=== PATIENT | male | born 1965 | race Caucasian/White ===

== ENCOUNTER 2019-01-08 21:56 | Inpatient (IN) | payer OTHER ==
[~2019-01-08] VITALS: Ht 177.8 cm; Wt 78.0 kg
[2019-01-08] MEDS ORDERED: PROPOFOL 1,000 MG in IV 1 EA IV SCH (22:24)
[2019-01-08] MEDS ORDERED: PROPOFOL 1,000 MG/100 ML VIAL As Ordered ONE (22:25)
[2019-01-08] MEDS ORDERED: SUCCINYLCHOLINE INJ 200 MG/10 ML VIAL (J0330) IV ONE (22:30)
[2019-01-08] MEDS ORDERED: ROCURONIUM BROMIDE 50 MG/5 ML VIAL IV PRN (22:30)
[2019-01-08] MEDS ORDERED: ETOMIDATE INJ 20MG/10ML VIAL IV ONE (22:30)
[2019-01-08 22:46] LABS: HEMATOCRIT 50.3 % (42.0-52.0); HEMOGLOBIN 16.7 g/dl (13.5-17.5); MEAN CORPUSCULAR HEMOGLOBIN 30.1 pg (27.0-33.0); MEAN CORPUSCULAR HGB CONC 33.2 g/dl (32.0-36.5); MEAN CORPUSCULAR VOLUME 90.6 fl (80.0-96.0); PLATELET COUNT, AUTOMATED 270 10^3/uL (150-450); RED BLOOD COUNT 5.55 10^6/uL (4.30-6.10); WHITE BLOOD COUNT 13.8 10^3/uL (4.0-10.0)
[2019-01-08 22:57] LABS: ATYPICAL LYMPH 6 % (0-5); EOSINOPHILS 1 % (0-3); LYMPHOCYTES 30 % (16-44); MONOCYTES 8 % (0-5); NEUTROPHILS 55 % (28-66)
[2019-01-08 22:58] LABS: PLATELET ESTIMATE NORMAL (NORMAL)
[2019-01-08 23:12] LABS: ACETAMINOPHEN LEVEL < 2.0 UG/ML (10.0-30.0); ALBUMIN 3.5 GM/DL (3.2-5.2); ALT/SGPT 21 U/L (12-78); BILIRUBIN,DIRECT < 0.1 MG/DL (0.0-0.2); BILIRUBIN,TOTAL 0.1 MG/DL (0.2-1.0); BLOOD UREA NITROGEN 11 MG/DL (7-18); CARBON DIOXIDE LEVEL 24 MEQ/L (21-32); CHLORIDE LEVEL 110 MEQ/L (98-107); CK-MB VALUE MASS 1.4 NG/ML (<3.6); CPK CREATINE PHOSPHOKINASE 77 U/L (39-308); CREATININE FOR GFR 0.98 MG/DL (0.70-1.30); ETHYL ALCOHOL (ETHANOL) 0.135 % (0.000-0.010); GLOMERULAR FILTRATION RATE > 60.0 (>56); GLUCOSE, FASTING 97 MG/DL (70-100); MAGNESIUM LEVEL 1.9 MG/DL (1.8-2.4); MB/CK RELATIVE INDEX 1.82 (< OR =4); POTASSIUM SERUM 3.9 MEQ/L (3.5-5.1); SALICYLATE LEVEL 3.4 MG/DL (5.0-30.0); SODIUM LEVEL 143 MEQ/L (136-145); TOTAL PROTEIN 6.7 GM/DL (6.4-8.2); TROPONIN I < 0.02 NG/ML (< 0.10)
[2019-01-08 23:14] LABS: AMPHETAMINES LEVEL URINE NEGATIVE (NEGATIVE); BARBITURATES URINE NEGATIVE (NEGATIVE); BENZODIAZEPINES URINE NEGATIVE (NEGATIVE); CANNABINOIDS URINE POSITIVE (NEGATIVE); COCAINE METABOLITE URINE NEGATIVE (NEGATIVE); METHADONE URINE NEGATIVE (NEGATIVE); OPIATES URINE NEGATIVE (NEGATIVE); PHENCYCLIDINE URINE NEGATIVE (NEGATIVE)
[2019-01-08] MEDS ORDERED: MIDAZOLAM INJ 5 MG/ML VIAL (J2250) IV PRN (23:15)
[2019-01-08] MEDS ORDERED: MIDAZOLAM INJ 2 MG/2 ML VIAL (J2250) IV ONE (23:15)
[2019-01-08] MEDS ORDERED: fentaNYL 100 MCG/2 ML INJECTION (J3010) IV ONE (23:15)
[2019-01-08 23:25] LABS: ABG BASE EXCESS -6.1 (-2.0-2.0); ABG HCO3 20.8 MEQ/L (22.0-26.0); ABG PARTIAL PRESSURE CO2 46.1 mmHg (35.0-45.0); ABG PARTIAL PRESSURE O2 193.5 mmHg (75.0-100.0); ABG STANDARD HCO3 19.6 MEQ/L (22.0-26.0); ABG TOTAL CO2 22.3 MEQ/L (22.0-29.0); ABG pH (ARTERIAL) 7.273 UNITS (7.350-7.450)
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
[2019-01-08] MEDS ORDERED: NS 1,000 ML IV ONE (23:30)
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
[2019-01-09] VITALS (20 sets, daily range): BP systolic 85–148; BP diastolic 51–79
[2019-01-09] MEDS ORDERED: PROAAER10 INH (00:24)
[2019-01-09] MEDS ORDERED: VITA1CAP25 PO (00:24)
[2019-01-09] MEDS ORDERED: CEFD1CAP8 PO (00:24)
[2019-01-09] MEDS ORDERED: BUPR-335 PO (00:24)
[2019-01-09] MEDS ORDERED: ATOR1TAB21 PO (00:24)
[2019-01-09] MEDS ORDERED: PRAZ1CAP PO (00:24)
[2019-01-09] MEDS ORDERED: STIO1AER INH (00:24)
[2019-01-09] MEDS ORDERED: FLUO40CA PO (00:24)
[2019-01-09] MEDS ORDERED: AMLO5TAB6 PO (00:24)
[2019-01-09] MEDS ORDERED: MIDAZOLAM INJ 2 MG/2 ML VIAL (J2250) IV PRN (00:45)
[2019-01-09] MEDS: IPRATROPIUM 0.5MG/ALBUTEROL 2.5MG INH SOL UD 3ML (DUONEB)(J7620) NEB SCH ×4 (02:00→19:38)
[2019-01-09] MEDS: PROPOFOL 1,000 MG in IV 1 EA IV SCH ×2 (02:55→07:19)
--- NOTE | 2019-01-09 02:57 | REP ---
Clinical: Status post intubation. Comparison: None . Findings: Nasogastric tube in satisfactory position below left hemidiaphragm. Endotracheal tube approximately 4 cm above the felix. The mediastinum and cardiac silhouette are stable and within normal limits for portable technique. Diffuse increased interstitial markings are nonspecific. No focal consolidation. No obvious effusion. No pneumothorax. Skeletal structures are intact. Impression: 1. Endotracheal tube and nasogastric tube in satisfactory position. 2. Diffusely increased interstitial markings. Differential diagnosis includes but is not limited to pneumonitis, early pulmonary vascular congestion, edema, and chronic interstitial diseases. Electronically Signed by Mikey Ortiz MD 01/09/2019 02:48 A
[2019-01-09] MEDS: cefTRIAXone SOD 1 GM in D5W MINI-BAG PLUS 50 ML IV SCH (03:24)
[2019-01-09] MEDS ORDERED: ETOMIDATE INJ 20MG/10ML VIAL ONE (03:32)
[2019-01-09] MEDS ORDERED: ROCURONIUM BROMIDE 50 MG/5 ML VIAL ONE (03:32)
[2019-01-09] MEDS ORDERED: SUCCINYLCHOLINE 100 MG/5 ML SYRINGE (J0330) ONE (03:32)
[2019-01-09] MEDS ORDERED: PROPOFOL 200 MG/20 ML VIAL ONE (03:32)
[2019-01-09 05:13] LABS: BASO # 0.1 10^3/uL (0.0-0.2); BASO % 0.9 % (0.0-1.0); EOS # 0.4 10^3/uL (0.0-0.5); EOS % 4.3 % (0.0-3.0); HEMATOCRIT 46.5 % (42.0-52.0); HEMOGLOBIN 15.1 g/dl (13.5-17.5); LYMPH # 3.5 10^3/uL (1.5-5.0); LYMPH % 40.7 % (24.0-44.0); MEAN CORPUSCULAR HEMOGLOBIN 29.8 pg (27.0-33.0); MEAN CORPUSCULAR HGB CONC 32.5 g/dl (32.0-36.5); MEAN CORPUSCULAR VOLUME 91.7 fl (80.0-96.0); MONO # 0.7 10^3/uL (0.0-0.8); MONO % 7.8 % (0.0-5.0); NEUTROPHILS % 45.6 % (36.0-66.0); PLATELET COUNT, AUTOMATED 238 10^3/uL (150-450); RED BLOOD COUNT 5.07 10^6/uL (4.30-6.10); WHITE BLOOD COUNT 8.7 10^3/uL (4.0-10.0)
[2019-01-09 05:32] LABS: BLOOD UREA NITROGEN 12 MG/DL (7-18); CALCIUM LEVEL 8.3 MG/DL (8.5-10.1); CARBON DIOXIDE LEVEL 29 MEQ/L (21-32); CHLORIDE LEVEL 108 MEQ/L (98-107); GLOMERULAR FILTRATION RATE > 60.0 (>56); GLUCOSE, FASTING 92 MG/DL (70-100); MAGNESIUM LEVEL 1.9 MG/DL (1.8-2.4); PHOSPHORUS LEVEL 4.9 MG/DL (2.5-4.9); POTASSIUM SERUM 3.7 MEQ/L (3.5-5.1); SODIUM LEVEL 143 MEQ/L (136-145)
[2019-01-09 05:44] LABS: CPK CREATINE PHOSPHOKINASE 86 U/L (39-308); TROPONIN I < 0.02 NG/ML (< 0.10)
[2019-01-09 06:16] LABS: ABG BASE EXCESS 2.6 (-2.0-2.0); ABG HCO3 27.3 MEQ/L (22.0-26.0); ABG O2 SATURATION 98.8 % (95.0-99.0); ABG PARTIAL PRESSURE CO2 42.2 mmHg (35.0-45.0); ABG STANDARD HCO3 26.8 MEQ/L (22.0-26.0); ABG TOTAL CO2 28.6 MEQ/L (22.0-29.0); ABG pH (ARTERIAL) 7.429 UNITS (7.350-7.450)
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
--- NOTE | 2019-01-09 08:53 | REP ---
Single view chest: 01/10/2019. Indication: Intubation. Comparison: Yesterday. Findings: Lines and tubes are similarly positioned compared to the most recent study. There is no pneumothorax or significant pleural effusion. Slightly increased interstitial markings are redemonstrated particulate within the lung bases. Cardiac silhouette is normal. Impression: Essentially no change compared to yesterday. Electronically Signed by Dilan Lindsey DO 01/09/2019 08:51 A
[2019-01-09] MEDS ORDERED: CHLORHEXIDINE GLUCONATE 0.12 % 15ML UDC (PERIDEX ORAL RINSE) MT SCH (09:00)
[2019-01-09] MEDS: ENOXAPARIN 40 MG/0.4 ML SYRINGE (J1650) SC SCH (09:26)
[2019-01-09] MEDS: PANTOPRAZOLE 40MG INJ (PROTONIX) (C9113) IV SCH (09:26)
[2019-01-09] MEDS ORDERED: LORazepam 2 MG TAB PO PRN (09:30)
[2019-01-09 09:47] LABS: NT-PRO BNP 155 PG/ML (<125)
--- NOTE | 2019-01-09 09:50 | IPN ---
EVENT NOTE DATE: 01/09/2019 The patient was assessed later in the morning with a sedation vacation and weaning trial. The patient was responsive and following commands appropriately and tolerated the weaning trial well. The patient did not have any desaturation or hemodynamic instability. He had good tidal volumes, was not significantly tachypneic. The patient was therefore successfully extubated. Post extubation, he does complain of some discomfort in his chest and in his left arm where there is some bruising noted. The patient will be started on clinical institute withdrawal assessment for alcohol (CIWA) protocol with as needed benzodiazepines for possible alcohol withdrawal. He will also be started on thiamine, folate and multivitamin supplements. Will wean him off of oxygen later today as tolerated. Will advance his diet as tolerated today. Patient was signed out to hospitalist service. JULIANO
--- NOTE | 2019-01-09 12:45 | ECGEPIP ---
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
[2019-01-09] MEDS: amLODIPine 5 MG TAB PO SCH (14:58)
[2019-01-09] MEDS: THIAMINE 100 MG TAB PO SCH ×2 (14:59→20:31)
[2019-01-09] MEDS: MULTIVITAMINS/MINERALS THERAP 1 TAB PO SCH (14:59)
[2019-01-09] MEDS: FOLIC ACID 1 MG TAB PO SCH (15:00)
[2019-01-09] MEDS ORDERED: FLUBLOK(EGG FREE)(QUAD)INFLUENZA VACC 0.5ML SYRINGE (90682)18YRS&OLDER IM PRN (15:15)
--- NOTE | 2019-01-09 19:55 | ECGEPIP ---
[facility] - ED Test Date: 2019-01-09 Pat Name: KATHERINE ADKINS Department: Room: Q5979-20 Gender: Male Company Pilot: LUIS M : 1965 Requested By: Luis Miguel Parra Order Number: [id number] Reading MD: Amaris Oshea Measurements Intervals [place] Rate: 70 P: 26 CT: 125 QRS: 58 QRSD: 97 T: 42 QT: 427 QTc: 461 Interpretive Statements SINUS RHYTHM LOW QRS VOLTAGE IN EXTREMITY LEADS NO PRIOR ECG FOR COMPARISON NONSPECIFIC ST T WAVE CHANGES PROLONGED QTC Electronically Signed on 01-09-2019 19:54:27 EDT by Amaris Oshea
[2019-01-09] MEDS: ACETAMINOPHEN TAB 650MG DOSE (2X325MG) PO PRN (20:31)
[2019-01-09] MEDS: ATORVASTATIN 20 MG TAB PO SCH (20:31)
[2019-01-10] VITALS (16 sets, daily range): BP systolic 103–186; BP diastolic 60–88
[2019-01-10] MEDS: IPRATROPIUM 0.5MG/ALBUTEROL 2.5MG INH SOL UD 3ML (DUONEB)(J7620) NEB SCH ×4 (01:42→20:21)
[2019-01-10] MEDS: cefTRIAXone SOD 1 GM in D5W MINI-BAG PLUS 50 ML IV SCH (01:45)
[2019-01-10] MEDS: ACETAMINOPHEN TAB 650MG DOSE (2X325MG) PO PRN ×3 (02:51→16:53)
[2019-01-10 04:45] LABS: BASO # 0.1 10^3/uL (0.0-0.2); EOS # 0.5 10^3/uL (0.0-0.5); EOS % 5.1 % (0.0-3.0); HEMATOCRIT 45.4 % (42.0-52.0); HEMOGLOBIN 14.9 g/dl (13.5-17.5); LYMPH # 2.8 10^3/uL (1.5-5.0); LYMPH % 29.1 % (24.0-44.0); MEAN CORPUSCULAR HEMOGLOBIN 30.3 pg (27.0-33.0); MEAN CORPUSCULAR HGB CONC 32.8 g/dl (32.0-36.5); MEAN CORPUSCULAR VOLUME 92.3 fl (80.0-96.0); MONO # 1.1 10^3/uL (0.0-0.8); MONO % 11.5 % (0.0-5.0); NEUTROPHILS % 52.9 % (36.0-66.0); PLATELET COUNT, AUTOMATED 214 10^3/uL (150-450); RED BLOOD COUNT 4.92 10^6/uL (4.30-6.10); WHITE BLOOD COUNT 9.6 10^3/uL (4.0-10.0)
[2019-01-10 05:07] LABS: BLOOD UREA NITROGEN 10 MG/DL (7-18); CALCIUM LEVEL 8.3 MG/DL (8.5-10.1); CARBON DIOXIDE LEVEL 29 MEQ/L (21-32); CHLORIDE LEVEL 109 MEQ/L (98-107); CREATININE FOR GFR 0.86 MG/DL (0.70-1.30); GLOMERULAR FILTRATION RATE > 60.0 (>56); GLUCOSE, FASTING 88 MG/DL (70-100); POTASSIUM SERUM 3.8 MEQ/L (3.5-5.1); SODIUM LEVEL 143 MEQ/L (136-145)
--- NOTE | 2019-01-10 08:19 | REP ---
Portable chest x-ray: Single view. History: Intubated patient. Comparison study January 09, 2019. Findings: In the interval since the prior chest x-ray, the endotracheal and nasogastric tubes have been withdrawn. Oxygen delivery tubing and monitoring electrodes are seen. There is mild plate-like atelectasis in the left and right lung base. Lung armendariz are otherwise clear. Heart is not enlarged. There is right apical bullous. No new infiltrate. Electronically Signed by Scott Zavala MD 01/10/2019 08:10 A
[2019-01-10] MEDS: THIAMINE 100 MG TAB PO SCH ×2 (08:33→20:00)
[2019-01-10] MEDS: MULTIVITAMINS/MINERALS THERAP 1 TAB PO SCH (08:33)
[2019-01-10] MEDS: FOLIC ACID 1 MG TAB PO SCH (08:33)
[2019-01-10] MEDS: amLODIPine 5 MG TAB PO SCH (08:33)
[2019-01-10] MEDS: ENOXAPARIN 40 MG/0.4 ML SYRINGE (J1650) SC SCH (08:34)
[2019-01-10] MEDS: PANTOPRAZOLE 40MG INJ (PROTONIX) (C9113) IV SCH (08:34)
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
[2019-01-10] MEDS: ATORVASTATIN 20 MG TAB PO SCH (20:00)
[2019-01-10] MEDS ORDERED: NALOXONE INJ 0.4 MG/1 ML VIAL (J2310) As Ordered ONE ×3 (22:09→22:21)
[2019-01-10] MEDS ORDERED: FLUMAZENIL 0.5 MG/5 ML VIAL As Ordered ONE (22:24)
[2019-01-10] MEDS ORDERED: FLUMAZENIL 0.5 MG/5 ML VIAL IV STA (22:26)
[2019-01-10 22:30] LABS: ABG BASE EXCESS 2.4 (-2.0-2.0); ABG HCO3 25.5 MEQ/L (22.0-26.0); ABG O2 SATURATION 96.9 % (95.0-99.0); ABG PARTIAL PRESSURE CO2 35.4 mmHg (35.0-45.0); ABG PARTIAL PRESSURE O2 83.3 mmHg (75.0-100.0); ABG STANDARD HCO3 26.6 MEQ/L (22.0-26.0); ABG TOTAL CO2 26.6 MEQ/L (22.0-29.0); ABG pH (ARTERIAL) 7.476 UNITS (7.350-7.450)
[2019-01-10] MEDS ORDERED: NALOXONE INJ 0.4 MG/1 ML VIAL (J2310) IV STA ×3 (22:36)
--- NOTE | 2019-01-10 23:16 | REPVR ---
PROCEDURE INFORMATION: Exam: CT Head Without Contrast Exam date and time: 01/10/2019 10:45 PM Clinical history: 53 years old, male; Altered mental status/memory loss; Additional info: Altered mental status / stuporous TECHNIQUE: Imaging protocol: Computed tomography of the head without contrast. Radiation optimization: All CT scans at this facility use at least one of these dose optimization techniques: automated exposure control; mA and/or kV adjustment per patient size (includes targeted exams where dose is matched to clinical indication); or iterative reconstruction. COMPARISON: CT Head without contrast 01/08/2019 10:44 PM FINDINGS: Brain: Diffuse mild cerebral age related volume loss. Mild patchy low attenuation in the white matter compatible with mild chronic small vessel ischemic disease. No midline shift, mass, fluid collection, or evidence of hemorrhage. Ventricles: Ventricular enlargement proportional to volume loss. Bones/joints: Unremarkable. No acute fracture. Sinuses: Visualized sinuses are unremarkable. No fluid levels. Mastoid air cells: Middle ear and mastoid partial opacification, correlate for otitis media. Soft tissues: Unremarkable. IMPRESSION: 1. Mild involutional changes, no acute intracranial abnormality. 2. Middle ear and mastoid partial opacification, correlate for otitis media. Electronically signed by: Ashvin Abbasi On 01/10/2019 23:16:36 PM
[2019-01-10 23:36] LABS: BASO # 0.1 10^3/uL (0.0-0.2); BASO % 0.8 % (0.0-1.0); EOS # 0.6 10^3/uL (0.0-0.5); EOS % 6.2 % (0.0-3.0); HEMATOCRIT 48.2 % (42.0-52.0); HEMOGLOBIN 15.8 g/dl (13.5-17.5); LYMPH # 3.1 10^3/uL (1.5-5.0); LYMPH % 32.6 % (24.0-44.0); MEAN CORPUSCULAR HEMOGLOBIN 29.9 pg (27.0-33.0); MEAN CORPUSCULAR HGB CONC 32.8 g/dl (32.0-36.5); MEAN CORPUSCULAR VOLUME 91.1 fl (80.0-96.0); MONO % 10.7 % (0.0-5.0); NEUTROPHILS # 4.7 10^3/uL (1.5-8.5); NEUTROPHILS % 49.3 % (36.0-66.0); PLATELET COUNT, AUTOMATED 232 10^3/uL (150-450); RED BLOOD COUNT 5.29 10^6/uL (4.30-6.10); WHITE BLOOD COUNT 9.5 10^3/uL (4.0-10.0)
[2019-01-10 23:52] LABS: AMPHETAMINES LEVEL URINE NEGATIVE (NEGATIVE); BARBITURATES URINE NEGATIVE (NEGATIVE); BENZODIAZEPINES URINE POSITIVE (NEGATIVE); CANNABINOIDS URINE POSITIVE (NEGATIVE); COCAINE METABOLITE URINE NEGATIVE (NEGATIVE); METHADONE URINE NEGATIVE (NEGATIVE); OPIATES URINE NEGATIVE (NEGATIVE); PHENCYCLIDINE URINE NEGATIVE (NEGATIVE)
--- NOTE | 2019-01-10 23:56 | REPVR ---
PROCEDURE INFORMATION: Exam: XR Chest, 1 View Exam date and time: 01/10/2019 10:30 PM Clinical history: 53 years old, male; Other: Non responsive; Additional info: PT nonresponsive TECHNIQUE: Imaging protocol: XR of the chest Views: 1 view. COMPARISON: CR PORTABLE CHEST X-RAY 01/10/2019 7:27 AM FINDINGS: Lungs: Unremarkable. No consolidation. Pleural space: Unremarkable. No pleural effusion. No pneumothorax. Heart/Mediastinum: Unremarkable. No cardiomegaly. Bones/joints: Unremarkable. IMPRESSION: No acute findings. Electronically signed by: Dilan Jaquez On 01/10/2019 23:56:00 PM
[2019-01-11] VITALS (12 sets, daily range): BP systolic 97–151; BP diastolic 55–81
[2019-01-11] MEDS ORDERED: FLUMAZENIL 0.5 MG/5 ML VIAL IV STA (00:05)
[2019-01-11 00:27] LABS: ALBUMIN 3.3 GM/DL (3.2-5.2); ALT/SGPT 59 U/L (12-78); BILIRUBIN,TOTAL 0.4 MG/DL (0.2-1.0); BLOOD UREA NITROGEN 12 MG/DL (7-18); CALCIUM LEVEL 8.7 MG/DL (8.5-10.1); CARBON DIOXIDE LEVEL 27 MEQ/L (21-32); CHLORIDE LEVEL 108 MEQ/L (98-107); CHOLESTEROL LEVEL 149 MG/DL (< 200); CPK CREATINE PHOSPHOKINASE 95 U/L (39-308); CREATININE FOR GFR 0.91 MG/DL (0.70-1.30); GLOMERULAR FILTRATION RATE > 60.0 (>56); GLUCOSE, FASTING 116 MG/DL (70-100); LDH LACTATE DEHYDROGENASE 171 U/L (87-241); PHOSPHORUS LEVEL 2.6 MG/DL (2.5-4.9); POTASSIUM SERUM 3.9 MEQ/L (3.5-5.1); SODIUM LEVEL 141 MEQ/L (136-145); TOTAL PROTEIN 6.2 GM/DL (6.4-8.2); TRIGLYCERIDES LEVEL 208 MG/DL (<150)
[2019-01-11] MEDS: IPRATROPIUM 0.5MG/ALBUTEROL 2.5MG INH SOL UD 3ML (DUONEB)(J7620) NEB SCH ×4 (01:43→19:27)
[2019-01-11] MEDS: cefTRIAXone SOD 1 GM in D5W MINI-BAG PLUS 50 ML IV SCH (02:55)
[2019-01-11 04:48] LABS: BASO # 0.1 10^3/uL (0.0-0.2); BASO % 0.8 % (0.0-1.0); EOS # 0.5 10^3/uL (0.0-0.5); EOS % 6.2 % (0.0-3.0); HEMATOCRIT 46.8 % (42.0-52.0); LYMPH # 3.1 10^3/uL (1.5-5.0); LYMPH % 35.6 % (24.0-44.0); MEAN CORPUSCULAR HEMOGLOBIN 29.5 pg (27.0-33.0); MEAN CORPUSCULAR HGB CONC 32.1 g/dl (32.0-36.5); MEAN CORPUSCULAR VOLUME 91.9 fl (80.0-96.0); MONO # 0.8 10^3/uL (0.0-0.8); MONO % 9.5 % (0.0-5.0); NEUTROPHILS # 4.1 10^3/uL (1.5-8.5); NEUTROPHILS % 47.4 % (36.0-66.0); PLATELET COUNT, AUTOMATED 227 10^3/uL (150-450); RED BLOOD COUNT 5.09 10^6/uL (4.30-6.10); WHITE BLOOD COUNT 8.6 10^3/uL (4.0-10.0)
[2019-01-11 05:15] LABS: BLOOD UREA NITROGEN 11 MG/DL (7-18); CALCIUM LEVEL 8.6 MG/DL (8.5-10.1); CARBON DIOXIDE LEVEL 29 MEQ/L (21-32); CHLORIDE LEVEL 108 MEQ/L (98-107); CREATININE FOR GFR 0.91 MG/DL (0.70-1.30); GLOMERULAR FILTRATION RATE > 60.0 (>56); GLUCOSE, FASTING 108 MG/DL (70-100); POTASSIUM SERUM 3.9 MEQ/L (3.5-5.1); SODIUM LEVEL 141 MEQ/L (136-145)
[2019-01-11] MEDS: ACETAMINOPHEN TAB 650MG DOSE (2X325MG) PO PRN ×2 (08:10→19:25)
[2019-01-11] MEDS: amLODIPine 5 MG TAB PO SCH (08:10)
[2019-01-11] MEDS: FOLIC ACID 1 MG TAB PO SCH (08:10)
[2019-01-11] MEDS: MULTIVITAMINS/MINERALS THERAP 1 TAB PO SCH (08:10)
[2019-01-11] MEDS: THIAMINE 100 MG TAB PO SCH ×2 (08:10→20:04)
[2019-01-11] MEDS: ENOXAPARIN 40 MG/0.4 ML SYRINGE (J1650) SC SCH (08:11)
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
[2019-01-11] MEDS: ATORVASTATIN 20 MG TAB PO SCH (20:04)
[2019-01-11] MEDS: PRAZOSIN 1 MG CAP PO SCH (20:05)
[2019-01-12] VITALS (12 sets, daily range): BP systolic 106–148; BP diastolic 65–96
[2019-01-12] MEDS: cefTRIAXone SOD 1 GM in D5W MINI-BAG PLUS 50 ML IV SCH (01:06)
[2019-01-12] MEDS: IPRATROPIUM 0.5MG/ALBUTEROL 2.5MG INH SOL UD 3ML (DUONEB)(J7620) NEB SCH ×4 (01:06→19:52)
[2019-01-12 06:19] LABS: BASO # 0.1 10^3/uL (0.0-0.2); EOS # 0.6 10^3/uL (0.0-0.5); EOS % 6.6 % (0.0-3.0); HEMOGLOBIN 15.3 g/dl (13.5-17.5); LYMPH % 33.8 % (24.0-44.0); MEAN CORPUSCULAR HEMOGLOBIN 29.1 pg (27.0-33.0); MEAN CORPUSCULAR HGB CONC 31.9 g/dl (32.0-36.5); MEAN CORPUSCULAR VOLUME 91.4 fl (80.0-96.0); MONO % 11.6 % (0.0-5.0); NEUTROPHILS # 4.1 10^3/uL (1.5-8.5); NEUTROPHILS % 46.5 % (36.0-66.0); PLATELET COUNT, AUTOMATED 248 10^3/uL (150-450); RED BLOOD COUNT 5.25 10^6/uL (4.30-6.10); WHITE BLOOD COUNT 8.8 10^3/uL (4.0-10.0)
[2019-01-12 06:49] LABS: BLOOD UREA NITROGEN 15 MG/DL (7-18); CALCIUM LEVEL 9.1 MG/DL (8.5-10.1); CARBON DIOXIDE LEVEL 27 MEQ/L (21-32); CHLORIDE LEVEL 106 MEQ/L (98-107); CREATININE FOR GFR 0.92 MG/DL (0.70-1.30); GLOMERULAR FILTRATION RATE > 60.0 (>56); GLUCOSE, FASTING 106 MG/DL (70-100); POTASSIUM SERUM 3.7 MEQ/L (3.5-5.1); SODIUM LEVEL 139 MEQ/L (136-145)
[2019-01-12] MEDS: FOLIC ACID 1 MG TAB PO SCH (10:16)
[2019-01-12] MEDS: amLODIPine 5 MG TAB PO SCH (10:18)
[2019-01-12] MEDS: MULTIVITAMINS/MINERALS THERAP 1 TAB PO SCH (10:18)
[2019-01-12] MEDS: FLUoxetine 20 MG CAP PO SCH (10:18)
[2019-01-12] MEDS: buPROPion **XL** TABLET 150MG (WELLBUTRIN XL) PO SCH (10:18)
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
[2019-01-12] MEDS: ENOXAPARIN 40 MG/0.4 ML SYRINGE (J1650) SC SCH (10:19)
[2019-01-12] MEDS: MIRALAX *UNIT DOSE* 17GM PACKET PO PRN ×2 (13:20→14:55)
[2019-01-12] MEDS: CEFDINIR 300 MG CAP (OMNICEF) PO SCH ×3 (13:20→20:41)
[2019-01-12] MEDS ORDERED: NALOXONE INJ 0.4 MG/1 ML VIAL (J2310) As Ordered ONE (13:39)
[2019-01-12] MEDS ORDERED: FLUMAZENIL 0.5 MG/5 ML VIAL IV STA ×2 (13:44)
[2019-01-12] MEDS ORDERED: NALOXONE INJ 0.4 MG/1 ML VIAL (J2310) IV STA (13:44)
[2019-01-12] MEDS ORDERED: NALOXONE INJ 2 MG/2 ML SYRINGE (J2310) IV STA ×2 (14:13→14:32)
[2019-01-12 14:37] LABS: ABG BASE EXCESS 0.8 (-2.0-2.0); ABG HCO3 25.4 MEQ/L (22.0-26.0); ABG O2 SATURATION 95.6 % (95.0-99.0); ABG PARTIAL PRESSURE CO2 40.6 mmHg (35.0-45.0); ABG PARTIAL PRESSURE O2 79.4 mmHg (75.0-100.0); ABG STANDARD HCO3 25.1 MEQ/L (22.0-26.0); ABG TOTAL CO2 26.6 MEQ/L (22.0-29.0); ABG pH (ARTERIAL) 7.414 UNITS (7.350-7.450)
--- NOTE | 2019-01-12 16:39 | REP ---
MRI brain: 01/12/2019. Indication: Altered mental status. Stroke. Comparison: No previous MRI studies are available for direct comparison. Technique: Multiplanar short and long TR sequences of the brain were obtained without IV Gadolinium. Findings: There are no areas of restricted diffusion. There is no intracranial mass effect or hydrocephalous. No significant intracranial hemorrhage is present. The large intracranial flow voids are noted and unremarkable. There are a few small foci of elevated white matter T2 signal scattered throughout the cerebral hemispheres which is nonspecific, but likely represent sequelae of chronic small vessel disease. The midline structures, and craniocervical junction are unremarkable. Impression: No acute intracranial process. Sequelae of chronic microangiopathic ischemic disease. Electronically Signed by Dilan Lindsey DO 01/12/2019 04:31 P
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
[2019-01-12] MEDS: ACETAMINOPHEN TAB 650MG DOSE (2X325MG) PO PRN (18:27)
[2019-01-12] MEDS: PRAZOSIN 1 MG CAP PO SCH (20:40)
[2019-01-12] MEDS: ATORVASTATIN 20 MG TAB PO SCH (20:40)
--- NOTE | 2019-01-12 20:46 | ECHO ---
DATE OF PROCEDURE: 01/12/2019 DATE OF : 1965 AGE: 53 GENDER: Male HEIGHT: 70 inches WEIGHT: 171 pounds BODY SURFACE AREA: 1.96 meters squared INPATIENT: [address] [place] [address], room 4213 REFERRING PHYSICIAN: Dr. Kwasi Acuna INDICATION: Cardiac arrest. MEASUREMENTS: 2D Measurements: RV: 3.4 cm LV: 5.3 cm Septum: 1.0 cm Posterior wall: 1.0 cm Aortic root: 3.4 cm LA: 4.0 cm LVEF: 65-70% DOPPLER MEASUREMENTS: AV: 1.42 meters per second LVOT: 1.14 meters per second LVOT diameter: 2.0 cm MV-E: 80, A: 111, E/A ratio: 07 Early mitral deceleration time: 190 milliseconds E prime: 5.6, A prime: 7.2, E/E prime ratio: 14.3 Pulmonary capillary wedge pressure: 16.6 mmHg PV: 0.8 meters per second Pulmonary artery acceleration time: 130 milliseconds PASP: 24 mmHg IVC: 1.8 cm COMMENTS: Normal sinus rhythm without intraventricular conduction disturbance. M-mode and two-dimensional echocardiography was performed with pulsed, continuous wave, color flow and tissue Doppler studies. Normal left ventricular size, wall thickness and wall motion. Borderline left atrial enlargement with type 2 diastolic dysfunction and current estimated mean left atrial pressure only slightly elevated. Normal right heart chamber sizes and motion and estimated pulmonary arterial pressure. Mild aortic valvular sclerosis without stenosis and only very mild insufficiency. Normal appearing mitral valvular apparatus without functional abnormality. Normal appearing tricuspid valve and function. No apparent intracardiac mass or pericardial effusion. Aortic dimensions were within normal limits.
[2019-01-13] MEDS: ACETAMINOPHEN TAB 650MG DOSE (2X325MG) PO PRN ×4 (00:28→21:01)
[2019-01-13] MEDS: IPRATROPIUM 0.5MG/ALBUTEROL 2.5MG INH SOL UD 3ML (DUONEB)(J7620) NEB SCH ×4 (01:16→18:01)
[2019-01-13 02:00] VITALS: BP 120/73
[2019-01-13 02:45] VITALS: BP 121/91
[2019-01-13 02:52] VITALS: BP 121/91
[2019-01-13 05:45] VITALS: BP 147/78
[2019-01-13 06:15] LABS: BASO # 0.1 10^3/uL (0.0-0.2); BASO % 0.9 % (0.0-1.0); EOS # 0.5 10^3/uL (0.0-0.5); EOS % 5.4 % (0.0-3.0); HEMATOCRIT 48.9 % (42.0-52.0); HEMOGLOBIN 15.9 g/dl (13.5-17.5); LYMPH # 2.8 10^3/uL (1.5-5.0); LYMPH % 31.6 % (24.0-44.0); MEAN CORPUSCULAR HEMOGLOBIN 29.5 pg (27.0-33.0); MEAN CORPUSCULAR HGB CONC 32.5 g/dl (32.0-36.5); MEAN CORPUSCULAR VOLUME 90.7 fl (80.0-96.0); MONO # 1.1 10^3/uL (0.0-0.8); MONO % 11.9 % (0.0-5.0); NEUTROPHILS # 4.4 10^3/uL (1.5-8.5); NEUTROPHILS % 49.6 % (36.0-66.0); PLATELET COUNT, AUTOMATED 265 10^3/uL (150-450); RED BLOOD COUNT 5.39 10^6/uL (4.30-6.10); WHITE BLOOD COUNT 8.9 10^3/uL (4.0-10.0)
[2019-01-13 06:41] LABS: ALBUMIN 3.4 GM/DL (3.2-5.2); ALT/SGPT 63 U/L (12-78); BILIRUBIN,TOTAL 0.7 MG/DL (0.2-1.0); BLOOD UREA NITROGEN 11 MG/DL (7-18); CARBON DIOXIDE LEVEL 28 MEQ/L (21-32); CHLORIDE LEVEL 104 MEQ/L (98-107); CREATININE FOR GFR 0.95 MG/DL (0.70-1.30); GLOMERULAR FILTRATION RATE > 60.0 (>56); GLUCOSE, FASTING 103 MG/DL (70-100); POTASSIUM SERUM 3.8 MEQ/L (3.5-5.1); SODIUM LEVEL 140 MEQ/L (136-145); TOTAL PROTEIN 6.8 GM/DL (6.4-8.2)
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
[2019-01-13] MEDS: buPROPion **XL** TABLET 150MG (WELLBUTRIN XL) PO SCH (08:25)
[2019-01-13] MEDS: FOLIC ACID 1 MG TAB PO SCH (08:26)
[2019-01-13] MEDS: amLODIPine 5 MG TAB PO SCH (08:26)
[2019-01-13] MEDS: ENOXAPARIN 40 MG/0.4 ML SYRINGE (J1650) SC SCH (08:26)
[2019-01-13] MEDS: CEFDINIR 300 MG CAP (OMNICEF) PO SCH ×2 (08:26→21:00)
[2019-01-13] MEDS: MULTIVITAMINS/MINERALS THERAP 1 TAB PO SCH (08:26)
[2019-01-13] MEDS: FLUoxetine 20 MG CAP PO SCH (08:26)
[2019-01-13] MEDS: MIRALAX *UNIT DOSE* 17GM PACKET PO PRN (08:37)
[2019-01-13] MEDS ORDERED: levETIRAcetam 250MG TABLET (KEPPRA) PO ONE (11:30)
[2019-01-13] MEDS: NICOTINE 21MG/24HR 1 EA TRANSDERMAL TD SCH (11:37)
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
[2019-01-13] MEDS: levETIRAcetam 250MG TABLET (KEPPRA) PO SCH (20:59)
[2019-01-13] MEDS: ATORVASTATIN 20 MG TAB PO SCH (20:59)
[2019-01-13] MEDS: PRAZOSIN 1 MG CAP PO SCH (21:00)
[2019-01-13 22:00] VITALS: BP 155/95
--- NOTE | 2019-01-13 22:40 | EEG ---
DATE OF PROCEDURE: 01/13/2019 REFERRING PHYSICIAN: Dr. Sully Zuniga DIAGNOSIS: Patient with episodes of apnea and agonal breathing, and was intubated. He was bradycardic and then lost activity on monitor and had no pulse, needed resuscitation. This EEG was done to rule out epileptic potential. He is currently taking Lipitor, folic acid, Wellbutrin, Prozac, prazosin, cefdinir, Keppra, etc. TECHNICAL DESCRIPTION: This digital EEG was recorded by 21 scalp, ear, and two EKG electrodes and was reviewed in bipolar and referential montages following reformatting in 10-20 international electrode placement system. INTERPRETATION: Patient was noted to be in awake and drowsy states during this EEG. Resting awake background rhythm consisted of well-formed posterior dominant rhythm with anterior/posterior gradient comprising of 10 Hertz alpha activity measuring 15-40 microvolts in amplitude, which was symmetric and reactive to eye opening. Attenuation of posterior dominant rhythm was seen during transition to drowsiness. Stage I and II sleep were reviewed and were symmetric bilaterally. Hyperventilation could not performed. Photic stimulation remained unremarkable. EKG revealed normal sinus rhythm. No focal, lateralizing, or epileptiform abnormalities were seen. No relevant clinical activity was noted. CONCLUSION: This EEG in awake, drowsy states, stage I and II sleep is within normal limits.
[2019-01-14] MEDS: IPRATROPIUM 0.5MG/ALBUTEROL 2.5MG INH SOL UD 3ML (DUONEB)(J7620) NEB SCH ×4 (00:23→20:09)
[2019-01-14 02:00] VITALS: BP 124/75
[2019-01-14] MEDS: ACETAMINOPHEN TAB 650MG DOSE (2X325MG) PO PRN ×3 (05:54→18:28)
[2019-01-14 06:00] VITALS: BP 126/77
[2019-01-14 06:17] LABS: BASO # 0.1 10^3/uL (0.0-0.2); BASO % 1.4 % (0.0-1.0); EOS # 0.5 10^3/uL (0.0-0.5); EOS % 5.9 % (0.0-3.0); HEMATOCRIT 49.1 % (42.0-52.0); HEMOGLOBIN 15.8 g/dl (13.5-17.5); LYMPH # 2.6 10^3/uL (1.5-5.0); LYMPH % 33.9 % (24.0-44.0); MEAN CORPUSCULAR HEMOGLOBIN 29.3 pg (27.0-33.0); MEAN CORPUSCULAR HGB CONC 32.2 g/dl (32.0-36.5); MEAN CORPUSCULAR VOLUME 90.9 fl (80.0-96.0); MONO # 0.9 10^3/uL (0.0-0.8); MONO % 11.7 % (0.0-5.0); NEUTROPHILS # 3.6 10^3/uL (1.5-8.5); NEUTROPHILS % 46.6 % (36.0-66.0); PLATELET COUNT, AUTOMATED 265 10^3/uL (150-450); WHITE BLOOD COUNT 7.7 10^3/uL (4.0-10.0)
[2019-01-14 06:40] LABS: BLOOD UREA NITROGEN 12 MG/DL (7-18); CALCIUM LEVEL 9.2 MG/DL (8.5-10.1); CARBON DIOXIDE LEVEL 26 MEQ/L (21-32); CHLORIDE LEVEL 107 MEQ/L (98-107); CREATININE FOR GFR 0.93 MG/DL (0.70-1.30); GLOMERULAR FILTRATION RATE > 60.0 (>56); GLUCOSE, FASTING 100 MG/DL (70-100); POTASSIUM SERUM 3.7 MEQ/L (3.5-5.1); SODIUM LEVEL 140 MEQ/L (136-145)
[2019-01-14] MEDS: buPROPion **XL** TABLET 150MG (WELLBUTRIN XL) PO SCH (07:51)
[2019-01-14] MEDS: FOLIC ACID 1 MG TAB PO SCH (07:51)
[2019-01-14] MEDS: MULTIVITAMINS/MINERALS THERAP 1 TAB PO SCH (07:51)
[2019-01-14] MEDS: amLODIPine 5 MG TAB PO SCH (07:52)
[2019-01-14] MEDS: FLUoxetine 20 MG CAP PO SCH (07:52)
[2019-01-14] MEDS: CEFDINIR 300 MG CAP (OMNICEF) PO SCH ×2 (07:52→20:58)
[2019-01-14] MEDS: ENOXAPARIN 40 MG/0.4 ML SYRINGE (J1650) SC SCH (07:53)
[2019-01-14] MEDS: NICOTINE 21MG/24HR 1 EA TRANSDERMAL TD SCH (07:53)
[2019-01-14] MEDS: levETIRAcetam 250MG TABLET (KEPPRA) PO SCH ×2 (07:53→20:58)
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
[2019-01-14 14:00] VITALS: BP 124/80
[2019-01-14] MEDS: PRAZOSIN 1 MG CAP PO SCH (20:58)
[2019-01-14] MEDS: ATORVASTATIN 20 MG TAB PO SCH (20:58)
[2019-01-14 22:00] VITALS: BP 126/75
[2019-01-15] MEDS: IPRATROPIUM 0.5MG/ALBUTEROL 2.5MG INH SOL UD 3ML (DUONEB)(J7620) NEB SCH ×4 (02:44→19:20)
[2019-01-15] MEDS: ACETAMINOPHEN TAB 650MG DOSE (2X325MG) PO PRN ×2 (03:15→10:33)
[2019-01-15 06:00] VITALS: BP 126/72
[2019-01-15 06:51] LABS: BASO # 0.1 10^3/uL (0.0-0.2); EOS # 0.4 10^3/uL (0.0-0.5); EOS % 5.7 % (0.0-3.0); HEMATOCRIT 47.8 % (42.0-52.0); HEMOGLOBIN 15.4 g/dl (13.5-17.5); LYMPH % 39.3 % (24.0-44.0); MEAN CORPUSCULAR HEMOGLOBIN 29.7 pg (27.0-33.0); MEAN CORPUSCULAR HGB CONC 32.2 g/dl (32.0-36.5); MEAN CORPUSCULAR VOLUME 92.3 fl (80.0-96.0); MONO # 0.9 10^3/uL (0.0-0.8); MONO % 11.6 % (0.0-5.0); NEUTROPHILS # 3.2 10^3/uL (1.5-8.5); PLATELET COUNT, AUTOMATED 251 10^3/uL (150-450); RED BLOOD COUNT 5.18 10^6/uL (4.30-6.10); WHITE BLOOD COUNT 7.7 10^3/uL (4.0-10.0)
[2019-01-15 07:07] LABS: BLOOD UREA NITROGEN 15 MG/DL (7-18); CALCIUM LEVEL 8.5 MG/DL (8.5-10.1); CARBON DIOXIDE LEVEL 28 MEQ/L (21-32); CHLORIDE LEVEL 105 MEQ/L (98-107); CREATININE FOR GFR 0.92 MG/DL (0.70-1.30); GLOMERULAR FILTRATION RATE > 60.0 (>56); GLUCOSE, FASTING 98 MG/DL (70-100); POTASSIUM SERUM 3.8 MEQ/L (3.5-5.1); SODIUM LEVEL 139 MEQ/L (136-145)
[2019-01-15] MEDS: buPROPion **XL** TABLET 150MG (WELLBUTRIN XL) PO SCH (09:20)
[2019-01-15] MEDS: levETIRAcetam 250MG TABLET (KEPPRA) PO SCH ×2 (09:20→20:52)
[2019-01-15] MEDS: CEFDINIR 300 MG CAP (OMNICEF) PO SCH ×2 (09:20→20:51)
[2019-01-15] MEDS: MULTIVITAMINS/MINERALS THERAP 1 TAB PO SCH (09:20)
[2019-01-15] MEDS: FOLIC ACID 1 MG TAB PO SCH (09:20)
[2019-01-15] MEDS: FLUoxetine 20 MG CAP PO SCH (09:20)
[2019-01-15] MEDS: ENOXAPARIN 40 MG/0.4 ML SYRINGE (J1650) SC SCH (09:21)
[2019-01-15] MEDS: NICOTINE 21MG/24HR 1 EA TRANSDERMAL TD SCH (09:21)
[2019-01-15] MEDS: amLODIPine 5 MG TAB PO SCH (09:21)
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
[2019-01-15 14:00] VITALS: BP 128/80
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
[2019-01-15 14:26] LABS: CK-MB VALUE MASS < 1.0 NG/ML (<3.6); CPK CREATINE PHOSPHOKINASE 215 U/L (39-308); MB/CK RELATIVE INDEX 0.47 (< OR =4); TROPONIN I < 0.02 NG/ML (< 0.10)
[2019-01-15 19:23] LABS: CK-MB VALUE MASS < 1.0 NG/ML (<3.6); CPK CREATINE PHOSPHOKINASE 173 U/L (39-308); MB/CK RELATIVE INDEX 0.58 (< OR =4); TROPONIN I < 0.02 NG/ML (< 0.10)
[2019-01-15] MEDS: ATORVASTATIN 20 MG TAB PO SCH (20:51)
[2019-01-15] MEDS: PRAZOSIN 1 MG CAP PO SCH (20:56)
[2019-01-15 22:00] VITALS: BP 128/80
[2019-01-16] MEDS: IPRATROPIUM 0.5MG/ALBUTEROL 2.5MG INH SOL UD 3ML (DUONEB)(J7620) NEB SCH ×4 (00:11→21:28)
[2019-01-16 06:00] VITALS: BP 157/77
[2019-01-16] MEDS: CEFDINIR 300 MG CAP (OMNICEF) PO SCH ×2 (08:03→21:15)
[2019-01-16] MEDS: buPROPion **XL** TABLET 150MG (WELLBUTRIN XL) PO SCH (08:03)
[2019-01-16] MEDS: FOLIC ACID 1 MG TAB PO SCH (08:03)
[2019-01-16] MEDS: FLUoxetine 20 MG CAP PO SCH (08:03)
[2019-01-16] MEDS: amLODIPine 5 MG TAB PO SCH (08:04)
[2019-01-16] MEDS: levETIRAcetam 250MG TABLET (KEPPRA) PO SCH ×2 (08:04→21:15)
[2019-01-16] MEDS: MULTIVITAMINS/MINERALS THERAP 1 TAB PO SCH (08:04)
[2019-01-16] MEDS: NICOTINE 21MG/24HR 1 EA TRANSDERMAL TD SCH (08:04)
[2019-01-16] MEDS: ENOXAPARIN 40 MG/0.4 ML SYRINGE (J1650) SC SCH (08:05)
[2019-01-16] MEDS: MIRALAX *UNIT DOSE* 17GM PACKET PO PRN (08:13)
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
--- NOTE | 2019-01-16 12:28 | ECGEPIP ---
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 Check electrolyte balance. Possibly medication related. Electronically Signed on 01-16-2019 12:27:32 EDT by Sj Guy
[2019-01-16 14:00] VITALS: BP 140/80
[2019-01-16] MEDS: ACETAMINOPHEN TAB 650MG DOSE (2X325MG) PO PRN (16:51)
[2019-01-16] MEDS: ATORVASTATIN 20 MG TAB PO SCH (21:15)
[2019-01-16] MEDS: PRAZOSIN 1 MG CAP PO SCH (21:16)
[2019-01-16 22:00] VITALS: BP 128/59
[2019-01-17] MEDS: ACETAMINOPHEN TAB 650MG DOSE (2X325MG) PO PRN ×3 (00:45→23:22)
[2019-01-17] MEDS: IPRATROPIUM 0.5MG/ALBUTEROL 2.5MG INH SOL UD 3ML (DUONEB)(J7620) NEB SCH ×4 (01:39→20:52)
[2019-01-17 06:00] VITALS: BP 119/61
[2019-01-17] MEDS: levETIRAcetam 250MG TABLET (KEPPRA) PO SCH ×2 (07:57→20:53)
[2019-01-17] MEDS: amLODIPine 5 MG TAB PO SCH (07:57)
[2019-01-17] MEDS: CEFDINIR 300 MG CAP (OMNICEF) PO SCH ×2 (07:57→20:53)
[2019-01-17] MEDS: MULTIVITAMINS/MINERALS THERAP 1 TAB PO SCH (07:57)
[2019-01-17] MEDS: FLUoxetine 20 MG CAP PO SCH (07:57)
[2019-01-17] MEDS: FOLIC ACID 1 MG TAB PO SCH (07:57)
[2019-01-17] MEDS: ENOXAPARIN 40 MG/0.4 ML SYRINGE (J1650) SC SCH (07:58)
[2019-01-17] MEDS: buPROPion **XL** TABLET 150MG (WELLBUTRIN XL) PO SCH (07:58)
[2019-01-17] MEDS: NICOTINE 21MG/24HR 1 EA TRANSDERMAL TD SCH (07:58)
[2019-01-17 08:39] LABS: CANNABINOID, URINE Positive (Cutoff=20); CARBOXY THC (GC/MS) 281 ng/mL (Cutoff=10); CREATININE, URINE 105.7 mg/dL (20.0-300.0)
[2019-01-17 14:00] VITALS: BP 111/62
[2019-01-17] MEDS: PRAZOSIN 1 MG CAP PO SCH (20:53)
[2019-01-17] MEDS: ATORVASTATIN 20 MG TAB PO SCH (20:53)
[2019-01-17 22:00] VITALS: BP 123/55
[2019-01-18] MEDS: IPRATROPIUM 0.5MG/ALBUTEROL 2.5MG INH SOL UD 3ML (DUONEB)(J7620) NEB SCH ×2 (02:04→08:00)
[2019-01-18 05:40] VITALS: BP 98/48
[2019-01-18 05:48] VITALS: BP 102/54
[2019-01-18] MEDS: FLUoxetine 20 MG CAP PO SCH (09:35)
[2019-01-18 09:36] VITALS: BP 108/56
[2019-01-18] MEDS: CEFDINIR 300 MG CAP (OMNICEF) PO SCH (09:36)
[2019-01-18] MEDS: levETIRAcetam 250MG TABLET (KEPPRA) PO SCH (09:36)
[2019-01-18] MEDS: FOLIC ACID 1 MG TAB PO SCH (09:36)
[2019-01-18] MEDS: MULTIVITAMINS/MINERALS THERAP 1 TAB PO SCH (09:36)
[2019-01-18] MEDS: amLODIPine 5 MG TAB PO SCH (09:36)
[2019-01-18] MEDS: ENOXAPARIN 40 MG/0.4 ML SYRINGE (J1650) SC SCH (09:37)
[2019-01-18] MEDS: NICOTINE 21MG/24HR 1 EA TRANSDERMAL TD SCH (09:38)
[2019-01-18] MEDS: buPROPion **XL** TABLET 150MG (WELLBUTRIN XL) PO SCH (09:49)
[2019-01-18] MEDS ORDERED: FOLI1TAB11 PO (10:36)
[2019-01-18] MEDS ORDERED: WELLTAB38 PO (10:36)
[2019-01-18] MEDS ORDERED: NICO21PAT TD (10:36)
[2019-01-18] MEDS ORDERED: KEPP250T5 PO (10:36)
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
== END 2019-01-18 13:53 | disposition home or self-care (01) | DRG 196 ==
LOC: EDBD 21:56 → M ED 21:56 → M ED INP 01-09 00:43 → M ICU 01-09 01:32 → M MSPAV 01-12 02:51
PROVIDERS: ADMIT Internal Medicine Pulmonary Disease; ATTEND Family Medicine
PROC: 5A1935Z Respiratory Ventilation, Less than 24 Consecutive Hours (ICD-10-PCS; principal; 2019-01-09)
PROC: 0BH17EZ Insertion of Endotracheal Airway into Trachea, Via Natural or Artificial Opening (ICD-10-PCS; 2019-01-09)
DX: I46.9 Cardiac arrest, cause unspecified (principal); J96.91 Respiratory failure, unspecified with hypoxia; J84.9 Interstitial pulmonary disease, unspecified; R56.9 Unspecified convulsions; J44.9 Chronic obstructive pulmonary disease, unspecified; S02.32XA Fracture of orbital floor, left side, initial encounter for closed fracture; I11.9 Hypertensive heart disease without heart failure; E78.5 Hyperlipidemia, unspecified; F32.9 Major depressive disorder, single episode, unspecified; F43.10 Post-traumatic stress disorder, unspecified; F17.210 Nicotine dependence, cigarettes, uncomplicated; F12.10 Cannabis abuse, uncomplicated; H66.93 Otitis media, unspecified, bilateral; H53.2 Diplopia; H70.13 Chronic mastoiditis, bilateral; Z79.899 Other long term (current) drug therapy; Y04.0XXA Assault by unarmed brawl or fight, initial encounter; Y92.009 Unspecified place in unspecified non-institutional (private) residence as the place of occurrence of the external cause; Y99.8 Other external cause status; G47.419 Narcolepsy without cataplexy; G47.31 Primary central sleep apnea; Z90.49 Acquired absence of other specified parts of digestive tract; R06.3 Periodic breathing; V09.00XA Pedestrian injured in nontraffic accident involving unspecified motor vehicles, initial encounter